=== PATIENT | female | born 1975 ===

== ENCOUNTER 2019-02-06 12:45 | Inpatient (IN) | payer OTHER ==
[~2019-02-06] VITALS: Ht 152.4 cm; Wt 72.6 kg
[2019-02-06] MEDS ORDERED: IMITREX50 MG PO (15:10)
[2019-02-14] MEDS ORDERED: OXYC1TAB9 PO (06:10)
== END 2019-02-14 07:58 | disposition home or self-care (01) | DRG 743 ==
LOC: O/R 12:45 → OB/GYN 02-12 05:00 → RECOVERY 02-12 07:00 → OB/GYN 02-12 10:57 → RECOVERY 02-12 12:45 → OB/GYN 02-14 07:58
PROVIDERS: ADMIT Obstetrics & Gynecology Gynecology
PROC: 0UT70ZZ Resection of Bilateral Fallopian Tubes, Open Approach (ICD-10-PCS; 2019-02-12)
PROC: 0UT90ZZ Resection of Uterus, Open Approach (ICD-10-PCS; principal; 2019-02-12 07:00)
DX: D25.1 Intramural leiomyoma of uterus (principal); D25.0 Submucous leiomyoma of uterus; D25.2 Subserosal leiomyoma of uterus; N72 Inflammatory disease of cervix uteri